=== PATIENT | male | born 1940 | race Caucasian/White ===

== ENCOUNTER 2016-05-22 14:14 | Outpatient (RCR) | payer MEDICARE, BC ==
[~2016-05-22 14:14] MED LIST: ALEVE 220MG220 MG PO; COZAAR 25MG25 MG/TAB PO; FLEXERIL5 MG PO; NORCO 325 MG-7.1 TAB PO; PREDFORTE5ML; TYLENOL 325MG325 MG PO; ULTRAM 50MG TAB50 MG PO
== END 2016-08-20 | disposition home or self-care (01) ==
LOC: WSST
DX: R13.10 Dysphagia, unspecified (principal)
CPT/HCPCS: G8996-GN; G8997-GN

== ENCOUNTER → 2016-06-01 | Outpatient (CLI) | payer MEDICARE, BC | LOC: COL.RAD 08:19 | DX: R13.12 Dysphagia, oropharyngeal phase (principal) | CPT/HCPCS: G8996-GN; G8997-GN ==